=== PATIENT | male | born 1935 | race Caucasian/White ===

== ENCOUNTER 2017-04-09 11:52 | Outpatient (CLI) ==
[2017-04-09 12:08] LABS: BASOPHILS # (AUTO) 0.1 K/uL (0-0.2); BASOPHILS % (AUTO) 0.8 % (0.0-3.0); EOSINOPHILS # (AUTO) 0.3 K/ul (0.0-0.7); EOSINOPHILS % (AUTO) 4.1 % (0.0-7.0); HEMOGLOBIN 15.9 g/dl (14.0-18.0); IMMATURE GRANULOCYTE % (AUTO) 0.4 % (0.0-5.0); LYMPHOCYTES # (AUTO) 1.4 K/uL (0.60-3.4); LYMPHOCYTES % (AUTO) 19.7 (10.0-50.0); MEAN CORPUSCULAR HEMOGLOBIN 31.4 pg (27.0-31.0); MEAN CORPUSCULAR HGB CONC 33.8 (31.8-35.4); MEAN CORPUSCULAR VOLUME 92.9 fl (80.0-94.0); MONOCYTES # (AUTO) 0.8 K/uL (0.4-2.0); MONOCYTES % (AUTO) 11.4 (0-10); NEUTROPHILS # (AUTO) 4.5 K/ul (2.0-6.9); NEUTROPHILS % (AUTO) 63.6; PLATELET COUNT 210 10^3/uL (140-440); RED BLOOD COUNT 5.06 10^6/ul (4.70-6.10); WHITE BLOOD COUNT 7.12 K/ul (4.2-10.2)
[2017-04-09 12:14] LABS: ESR INTERNAL QC INTERNAL QC VALID
--- NOTE | 2017-04-09 12:40 | DI ---
EXAM: PA and lateral views of the chest HISTORY: Preprocedural chest x-ray COMPARISON: None FINDINGS: The cardiomediastinal silhouette is normal. There is no pneumothorax or pleural effusion . There is no consolidation, nodule or mass. There is flattening of the diaphragm with increased AP diameter of the chest and calcifications along the diaphragm. There are ground-glass in the left lo wer lobe. The osseous structures demonstrate multilevel degenerative disease. IMPRESSION: 1. Nodular ground-glass in the left lower lobe may represent atelectasis versus inflammation/infect ion. 2. Findings consistent with chronic obstructive pulmonary disease.
[2017-04-09 12:41] LABS: BILIRUBIN,URINE Negative (NEGATIVE); KETONES,URINE Negative (NEGATIVE); LEUKOCYTE ESTERASE ,URINE Negative (NEGATIVE); NITRITE,URINE Negative (NEGATIVE); PROTEIN,URINE Negative (NEGATIVE); URINE, BLOOD Negative (NEGATIVE)
--- NOTE | 2017-04-09 12:41 | DI ---
EXAM: RIGHT KNEE. HISTORY: Knee effusion. FINDINGS: Right knee four view. Compared to 02/03/2016. There is at least moderate arthropathy of the anterior and medial compartments. Bone density appears decreased. No acute fracture is identif ied. There is a small joint effusion. 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 Generalized demineralizat ion. Small joint effusion. No acute fracture. No noticeable change since previous exam.
[2017-04-09 12:42] LABS: ADD URINE MICROSCOPIC NO
[2017-04-09 12:50] LABS: ERYTHROCYTE SEDIMENTATION RATE 10 mm/hr (0-15)
[2017-04-09 12:57] LABS: ALBUMIN 3.4 g/dL (3.4-5.0); ALBUMIN/GLOBULIN RATIO 0.97; ANION GAP 14.3; BILIRUBIN,TOTAL 0.6 mg/dL (0.00-1.20); BUN/CREATININE RATIO 12.37; CHOL/HDL RATIO 3.3 (4.5-6.4); CREATININE 0.97 mg/dL (0.60-1.10); POTASSIUM 4.3 mmol/L (3.5-5.1); TOTAL PROTEIN 6.9 g/dL (5.8-8.1)
== END 2017-04-09 11:53 | disposition home or self-care (01) ==
LOC: CAR 11:52
PROVIDERS: ATTEND Emergency Medicine
DX: R73.9 Hyperglycemia, unspecified (principal); E78.5 Hyperlipidemia, unspecified; M25.461 Effusion, right knee; M19.90 Unspecified osteoarthritis, unspecified site; M79.661 Pain in right lower leg; R35.0 Frequency of micturition; Z01.818 Encounter for other preprocedural examination
CPT/HCPCS: 36415; 80053; 80061; 81001; 83036; 84443; 85025; 85610; 85651; 86140; 93005; 93010

== ENCOUNTER 2017-04-13 06:08 | Outpatient (CLI) | payer OTHER ==
[2017-04-13] MEDS ORDERED: ATROPINE SULFATE PFS ONE (07:00)
[2017-04-13] MEDS ORDERED: DOBUTAMINE 250 ML IV ONE (07:00)
--- NOTE | 2017-04-13 09:11 | DI ---
EXAM: Four views of the right knee HISTORY: Right knee effusion. COMPARISON: Right knee x-ray 04/09/2017 and 02/03/2016 FINDINGS: There is moderate medial compartmental narrowing. There is bilateral osteophyte formation . The patellofemoral compartment is narrowed with osteophyte formation. The soft tissues are unrem arkable. There is no displaced fracture or dislocation. There is mild generalized osteopenia. 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
--- NOTE | 2017-04-13 10:01 | DOBSTECHST ---
Ordering Physician: LEILA DESAI Date of Test: 04/13/17 Reason for Examination: SURGICAL CLEARANCE, DYSLIPIDEMIA, HYPERGLYCEMIA Current Medications: ATORVASTATIN, PREDNISONE, NAPROXEN Height: 72" Weight: 195 LBS Target Heart Rate: 115 ST Segment Stage Time HR BPM BP mmhg Rhythm +/- Up Down Comments/Symptoms Control Sitting 76 150/90 SR X NONE Dobutamine 250mg/D5W 5cmg/KG/mn 3:00 90 162/88 SR X NONE 10cmg/KG/mn 2:00 102 150/72 SR X NONE 15cmg/KG/mn 2:00 121 152/68 SR X NONE 20cmg/KG/mn 25cmg/KG/mn 30cmg/KG/mn 35cmg/KG/mn 40cmg/KG/mn Time: 3" HR B/P Time: 6" HR B/P Time: HR B/P Recovery 126 170/80 Recovery 104 120/60 Recovery Total Time: 6:55 Maximum Heart Rate Reached: 134 __ Interpretation: 95% OXYGEN SATURATION WITH EXERCISE ON ROOM AIR 1. NO EVIDENCE OF ISCHEMIA BY ST-T WAVE 2. NO CHEST PAIN OR CHEST DISCOMFORT 3. NORMAL LEFT VENTRICULAR CONTRACTILITY--RESTING AND WITH DOBUTAMINE INFUSION THALLIUM TO FOLLOW MTDD
--- NOTE | 2017-04-13 10:23 | ECHOSTRESS ---
Date of Exam: 04/13/17 Ordering Physician: LEILA DESAI Reason for Echo: SURGICAL CLEARANCE, DYSLIPIDEMIA, DOBUTAMINE STRESS --NO ISCHEMIA M-Mode Normal Adult Results LV Dimensions Normal Adult Results AoV Opening excursions >1.6 LVEDD-base- 3.5-5.8 Ao root dimensions 2.0-3.7 LVESD-base- 3.1-4.6 L. Atrium dimensions 1.9-3.8 Post. Wall thickness 0.8-1.1 IV septum (thickness) 0.7-1.2 Post. Wall excursion 0.72-1.3 Septal motion Systolic motion R. Ventricular cavity 1.5-2.0 LVEF 60% Paradoxical septal wall motion 2-D: NORMAL LEFT VENTRICULAR CONTRACTILITY--RESTING AND DURING DOBUTAMINE INFUSION M-MODE: MV: AV: TV: PV: CHAMBER SIZE: WALL MOTION: NORMAL LEFT VENTRICULAR CONTRACTILITY--RESTING AND DURING DOBUTAMINE INFUSION PERICARDIUM: INTERPRETATION: 1. NORMAL LEFT VENTRICULAR CONTRACTILITY--RESTING AND DURING DOBUTAMINE INFUSION MTDD
--- NOTE | 2017-04-13 16:41 | NM ---
EXAM: Myocardial perfusion imaging HISTORY: Presurgical evaluation COMPARISON: None. TECHNIQUE: Patient was injected 4.1 mCi of thallium 201 chloride intravenously while at rest. SPECT imaging of the heart was acquired. The patient was stressed and injected 26 mCi of Tc99m Sestamibi intravenously. Another SPECT imaging of the heart was acquired. Gated cardiac study was performed . FINDINGS: Post stress images show normal left ventricular cavity size. There is significantly reduc ed perfusion in the region of the inferior wall and apex as well as mid anterior wall and septal wal l. These areas show reperfusion on delayed imaging consistent with reversible ischemia. Left ventr icular ejection fraction is 67% and wall motion is normal. IMPRESSION: 1. Stress induced reversible ischemia is identified involving the apex, anterior wall as well as s eptal wall and inferior wall. 2. Normal left ventricular ejection fraction and normal wall motion
== END 2017-04-13 06:09 | disposition home or self-care (01) ==
LOC: CAR 06:08
PROVIDERS: ATTEND Emergency Medicine
DX: M25.461 Effusion, right knee (principal); Z01.818 Encounter for other preprocedural examination; E78.5 Hyperlipidemia, unspecified; R73.9 Hyperglycemia, unspecified; R06.02 Shortness of breath